=== PATIENT | male | born 1975 | race American Indian/Alaskan Native ===

== ENCOUNTER 2018-01-17 16:42 | Emergency (ER) | payer BC ==
[2018-01-17 16:49] VITALS: BP 139/89
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
== END 2018-01-17 18:48 | disposition home or self-care (01) ==
LOC: ED 16:42
DX: M25.511 Pain in right shoulder (principal); M25.561 Pain in right knee
CPT/HCPCS: 99282